=== PATIENT | female | born 1975 | race African-American/Black ===

== ENCOUNTER 2018-02-13 07:30 | Emergency (ER) | payer OTHER ==
[2018-02-13 08:09] LABS: ADD MAN DIFF? NO
[2018-02-13] MEDS: ONDANSETRON 4 MG INJ IV ×2 (08:10→13:03)
[2018-02-13] MEDS: HYDROmorphONE 1 MG/ML SYG IV ×3 (08:10→13:38)
[2018-02-13 08:12] LABS: ABNORMAL IP MESSAGE 1; BASOPHIL # 0.2 10^3/ul (0.0-0.1); EOSINOPHILS # 0.2 10^3/ul (0.0-0.5); EOSINOPHILS % 1.3 % (0.0-7.0); HEMATOCRIT 26.7 % (37.0-47.0); LYMPHOCYTES # 3.8 10^3/ul (0.8-2.9); LYMPHOCYTES % 25.5 % (15.0-51.0); MEAN CORPUSCULAR HEMOGLOBIN 19.3 pg (29.0-33.0); MEAN CORPUSCULAR VOLUME 64.3 fl (82.0-101.0); MEAN PLATELET VOLUME 9.9 fl (7.4-10.4); MONOCYTES % 6.6 % (0.0-11.0); NEUTROPHIL # 9.8 10^3/ul (1.6-7.5); NEUTROPHILS % 65.2 % (39.0-77.0); PLATELET COUNT 346 10^3/UL (140-415); RED BLOOD COUNT 4.15 10^6/ul (4.20-5.40); RED CELL DISTRIBUTION WIDTH 23.5 % (11.5-14.5)
[2018-02-13 08:14] LABS: POSITIVE DIFF @See below
[2018-02-13 08:37] LABS: ANION GAP 16 (8-16); BLOOD UREA NITROGEN 9 mg/dl (7-20); CALCIUM 9.3 mg/dl (8.4-10.2); CARBON DIOXIDE 25 mmol/L (21-31); CHLORIDE 104 mmol/L (97-110); CREATININE 0.79 mg/dl (0.44-1.00); GLUCOSE 107 mg/dl (70-220); SODIUM 141 mmol/L (135-144)
[2018-02-13 08:50] LABS: TROPONIN-I < 0.012 ng/ml (0.000-0.120)
[2018-02-13] MEDS: DEXAMETHASONE 10 MG/ML 1 ML INJ IV (13:38)
== END 2018-02-13 15:38 | disposition home or self-care (01) ==
LOC: E/R 07:30
DX: M75.01 Adhesive capsulitis of right shoulder (principal); M75.51 Bursitis of right shoulder; R40.2142 Coma scale, eyes open, spontaneous, at arrival to emergency department; R40.2252 Coma scale, best verbal response, oriented, at arrival to emergency department; R40.2362 Coma scale, best motor response, obeys commands, at arrival to emergency department; F17.210 Nicotine dependence, cigarettes, uncomplicated
CPT/HCPCS: 36415; 73218-TC; 80048; 84484; 85025; 85651; 93005; 96374; 96375; 96376; 99285-25

== ENCOUNTER 2018-04-07 16:17 | Emergency (ER) | payer OTHER ==
[2018-04-07] MEDS: LORAZEPAM 1 MG TAB PO (18:46)
[2018-04-07] MEDS: KETOROLAC 30 MG INJ IM (18:47)
== END 2018-04-07 21:35 | disposition home or self-care (01) ==
LOC: FTE 16:17
DX: R25.2 Cramp and spasm (principal); F17.210 Nicotine dependence, cigarettes, uncomplicated
CPT/HCPCS: 73610; 73630-LT; 93971; 96372; 99285-25